=== PATIENT | female | born 1930 | race Caucasian/White ===

== ENCOUNTER → 2016-08-18 | Outpatient (CLI) | payer MEDICARE ==
[~2016-08-18] MED LIST: ASA CHILDREN'S81 MG PO; ASMANEX1 INH IH; CRESTOR10 MG PO; DIOVAN80 MG PO; DUONEB DPS3 ML IH; FLONASE 0.05% D16 GM IN; GLUCOPHAGE-DPS500 MG PO; HUMALOG, N100 UNITS/ SQ; IMDUR DPS30 MG PO; IMDUR DPS60 MG PO; INDERAL DPS20 MG PO; LYRICA75 MG PO; MAALOX DPS30 ML PO; MAG-OX400 MG PO; PLAVIX75 MG PO; PRAVACHOL40 MG PO; PROTONIX40 MG PO; PROVENTIL HFA6.7 GM IH; SINGULAIR10 MG PO; SURFAK DPS240 MG PO; TYLENOL325 MG PO; ZITHROMAX250 MG PO
== END | disposition home or self-care (01) ==
LOC: RAD.S 07:55
DX: R11.10 Vomiting, unspecified (principal); R49.0 Dysphonia; K22.4 Dyskinesia of esophagus